=== PATIENT | male | born 1990 | race Caucasian/White ===

== ENCOUNTER 2024-01-23 15:26 | Emergency (ER) | payer OTHER, SELFPAY ==
[2024-01-23 15:30] VITALS: BP 102/76; PULSE 111; TEMP 36.8; O2SAT 100; BMI 21.4
--- NOTE | 2024-01-23 15:58 | ED.GENADUL1 ---
HPI HPI - General Adult General Chief complaint: Nausea/Vomiting/Diarrhea Stated complaint: Nausea/Vomiting Time Seen by Provider: 01/23/24 15:52 Source: patient Mode of arrival: walk-in Limitations: no limitations History of Present Illness HPI narrative: Patient is a 33-year-old male with a history of anxiety presents to the emergency department for 1 day history of vomiting and diarrhea. He reports left central abdominal pain associated with this. He has had no blood in his stool. No objective fevers or upper respiratory symptoms. He states he was drinking and smoking heavily last night. He states he drinks so he can fall asleep because he has bad anxiety and the alcohol helps him fall asleep. He has had no urinary symptoms. No recent travel or antibiotics. Related Data Previous Rx's ?Medication ?Instructions ?Recorded dicyclomine 20 mg tablet 20 mg PO QID PRN abdominal pain 01/23/24 #12 tabs lorazepam 0.5 mg tablet (Ativan) 0.5 mg PO Q8H PRN anxiety #2 tabs 01/23/24 ondansetron 4 mg disintegrating 4 mg PO Q6H PRN nausea and 01/23/24 tablet vomiting #12 tabs Allergies Allergy/AdvReac Type Severity Reaction Status Date / Time No Known Drug Allergies Allergy Verified 01/23/24 15:30 Opioid HPI Opioid Management Most Recent Opioid Data: No Data to Display Review of Systems ROS Constitutional Reports: chills; Denies: fever Ears, nose, mouth, and throat Denies: throat pain or nasal congestion Cardiovascular Denies: chest pain Respiratory Denies: shortness of breath or cough Gastrointestinal Reports: abdominal pain, nausea, vomiting and diarrhea Musculoskeletal Denies: back pain Integumentary/Breast Denies: rash Neurological Denies: headache Psychiatric Reports: anxiety Hematologic/Lymphatic Denies: easy bruising or easy bleeding Exam Narrative Exam Narrative: Gen.: Awake, alert, in no distress Head: Normocephalic, atraumatic ENT: Moist mucous membranes Respiratory: No respiratory distress Gastrointestinal: Abdomen is soft, nondistended and nontender to palpation Extremities: Moves extremities equally Psych: Anxious, difficult to redirect Neuro: No focal neuro deficit Skin: Warm, dry, intact Constitutional Vital Signs, click to edit/add: Last Vital Signs Temp 98.2 F 01/23/24 15:30 Pulse 96 H 01/23/24 17:16 Resp 20 01/23/24 17:16 BP 126/76 01/23/24 17:16 Pulse Ox 100 01/23/24 17:16 O2 Del Method Room Air 01/23/24 15:30 Course Vital Signs Vital signs: Vital Signs Temperature 98.2 F 01/23/24 15:30 Pulse Rate 111 H 01/23/24 15:30 Respiratory Rate 20 01/23/24 15:30 Blood Pressure 102/76 01/23/24 15:30 Pulse Oximetry 100 01/23/24 15:30 Oxygen Delivery Method Room Air 01/23/24 15:30 Temperature 98.2 F 01/23/24 15:30 Pulse Rate 96 H 01/23/24 17:16 Respiratory Rate 20 01/23/24 17:16 Blood Pressure 126/76 01/23/24 17:16 Pulse Oximetry 100 01/23/24 17:16 Oxygen Delivery Method Room Air 01/23/24 15:30 Medical Decision Making MDM Narrative Medical decision making narrative: Patient found to have elevated white blood cell count and elevated lactic acid. He was treated with IV fluids, Zofran, Levsin in the ER. He was significantly anxious and is focused on his sleep patterns being the reason that he continues drinking alcohol. He was offered Ativan and at first was reluctant but then became agreeable to 0.5 mg IV Ativan with significant improvement. He is resting comfortably on reevaluation with no emesis in the ER. CT scan shows mild colitis and the patient is positive for norovirus. We will defer antibiotics at this time. Follow-up with PCP and return to the ER if symptoms change or worsen Medical Records Medical records reviewed: Yes I reviewed the patient's medical records Lab Data Lab results reviewed: Yes I reviewed the patient's lab results Labs: Lab Results 01/23/24 01/23/24 Range/Units 15:50 16:10 WBC 22.8 H (4.0-11.0) 10^3/uL RBC 5.43 (4.70-6.10) 10^6/uL Hgb 16.7 (14.0-18.0) g/dL Hct 49.0 (42.0-54.0) % MCV 90.2 (80.0-94.0) fL MCH 30.8 (25.9-34.0) pg MCHC 34.1 (29.9-35.2) g/dL RDW 12.0 (11.0-15.0) % Plt Count 283 (150-450) 10^3/uL MPV 8.7 L (9.5-13.5) fL Seg Neuts % (Manual) 93.0 Lymphocytes % (Manual) 1.0 L (20.5-60.0) % Monocytes % (Manual) 6.0 (1.7-12.0) % Eosinophils % (Manual) 0.0 L (0.9-7.0) % Basophils % (Manual) 0.0 L (0.2-2.0) % Neutrophils # (Manual) 21.20 H (1.4-6.5) 10^3/uL Lymphocytes # (Manual) 0.22 L (1.20-3.80) 10^3/uL Monocytes # (Manual) 1.36 H (0.30-0.80) 10^3/uL Eosinophils # (Manual) 0.00 (0.00-0.70) 10^3/uL Basophils # (Manual) 0.00 (0.00-0.10) 10^3/uL Sodium 140 (136-145) mmol/L Potassium 4.2 (3.5-5.1) mmol/L Chloride 102 (98-107) mmol/L Carbon Dioxide 20.2 L (21.0-32.0) mmol/L Anion Gap 22.0 BUN 12.0 (7.0-18.0) mg/dL Creatinine 1.07 (0.70-1.30) mg/dL Est GFR ( Amer) >60 (>=60) Est GFR (Non-Af Amer) >60 (>=60) BUN/Creatinine Ratio 11.2 Glucose 139 H (74-106) mg/dL Lactate 4.7 H* (0.4-2.0) mmol/L Calcium 10.2 H (8.5-10.1) mg/dL Total Bilirubin 0.9 (0.2-1.0) mg/dL AST 18 (15-37) U/L ALT 25 (16-63) U/L Alkaline Phosphatase 121 H (46-116) U/L Total Protein 8.8 H (6.4-8.2) g/dL Albumin 4.8 (3.4-5.0) g/dL Globulin 4.0 g/dL Albumin/Globulin Ratio 1.2 Lipase 22.0 (16.0-77.0) U/L Stl C. cayetanensis PCR Not detected (NOT DETECTE) Stool Rotavirus (PCR) Not detected (NOT DETECTE) Stool Adenovirus (PCR) Not detected (NOT DETECTE) Stool Astrovirus (PCR) Not detected (NOT DETECTE) Stool Campylobacter PCR Not detected (NOT DETECTE) Stool Cryptosporidium PCR Not detected (NOT DETECTE) St Sh/Enteroin Ecoli PCR Not detected (NOT DETECTE) Stl Enterotoxigenic E PCR Not detected (NOT DETECTE) Stool EPEC (PCR) Not detected (NOT DETECTE) Stl E. histolytica PCR Not detected (NOT DETECTE) Stool Giardia Lamblia PCR Not detected (NOT DETECTE) Stl P. shigelloides PCR Not detected (NOT DETECTE) Stool Salmonella PCR Not detected (NOT DETECTE) Stool Sapovirus (PCR) Not detected (NOT DETECTE) Stl Shiga-like Tx 1 PCR Not detected (NOT DETECTE) St Y.enterocolitica PCR Not detected (NOT DETECTE) Stl Vibrio cholerae PCR Not detected (NOT DETECTE) Stl Enteroaggr Ecoli PCR Not detected (NOT DETECTE) Stl Norovirus GI/GII PCR Detected A (NOT DETECTE) Specimen Source Stool C. difficile Toxin A&B Not detected (NOT DETECTE) Vibrio Culture Not detected (NOT DETECTE) Imaging Data CT scan - abdomen: Attestation: I have reviewed the pertinent imaging results. Radiologist's impression: ITS Impressions Abdomen/Pelvis CT 01/23/24 16:13 IMPRESSION: 1 mild thickening of the colon wall diffuse question mild colitis. No definite pericolonic fluid or inflammation. 2. Normal-appearing appendix right lower quadrant. Normal-appearing small bowel. No ascites or free fluid. 3. Mildly prominent bladder wall with questionable faint gas along the dome. Nonspecific but correlate for cystitis. Electronically authenticated by: ISIDRO MULLER Date: 01/23/2024 17:32 Discharge Plan Discharge Stand Alone Forms: Portal Instructions Chief Complaint: Nausea/Vomiting/Diarrhea Clinical Impression: Nausea vomiting and diarrhea, Norovirus Patient Disposition: Home, Self-Care Time of Disposition Decision: 18:07 Condition: Good Prescriptions / Home Meds: New dicyclomine 20 mg tablet 20 mg PO QID PRN (Reason: abdominal pain) Qty: 12 0RF ondansetron 4 mg tablet,disintegrating 4 mg PO Q6H PRN (Reason: nausea and vomiting) Qty: 12 0RF lorazepam [Ativan] 0.5 mg tablet 0.5 mg PO Q8H PRN (Reason: anxiety) Qty: 2 0RF Print Language: Icelandic Instructions: Gastroenteritis (ED), Acute Diarrhea (ED) Referrals: Physician,Non-Staff, MD [Primary Care Provider] - 1 week
[2024-01-23 16:03] LABS: Hemoglobin 16.7 g/dL (14.0-18.0); Mean Corpuscular HGB Conc 34.1 g/dL (29.9-35.2); Mean Corpuscular Hemoglobin 30.8 pg (25.9-34.0); Mean Corpuscular Volume 90.2 fL (80.0-94.0); Mean Platelet Volume 8.7 fL (9.5-13.5); Platelet Count 283 10^3/uL (150-450); Red Blood Count 5.43 10^6/uL (4.70-6.10); White Blood Count 22.8 10^3/uL (4.0-11.0)
[2024-01-23] MEDS: 0.9 % SODIUM CHLORIDE 1,000 ML 999 ML IV (16:03)
[2024-01-23] MEDS: ONDANSETRON PF 4 MG/2 ML VIAL IV (16:04)
[2024-01-23] MEDS: HYOSCYAMINE SULFATE 0.125 MG TAB.SUBL SL (16:05)
[2024-01-23 16:12] VITALS: BP 174/98; PULSE 81; O2SAT 95
--- NOTE | 2024-01-23 16:13 | CT_ITS ---
[address] [address] Patient Name: RICKY ROYAL MRN: [id number] date: 1990 Sex: M Assigned Patient Location: ED.MAIN Current Patient Location: ER Accession/Order Number: [id number] Exam Date: 01/23/2024 16:55 Report Date: 01/23/2024 17:32 At the request of: ALVIN MELENDEZ Procedure: CT abdomen pelvis w con EXAM: CT abdomen pelvis w con HISTORY: vomiting and diarrhea COMPARISON: None. TECHNIQUE: CT abdomen pelvis with IV contrast. 90 mL Omnipaque 350. Axial scans with reformatted coronal and sagittal images. Individualized radiation dose reduction used for this exam. FINDINGS: Lower chest: Lung bases clear, no pleural effusion. No acute process lower chest. ABDOMEN: Homogeneous liver without focal lesion. Normal appearing fluid-filled gallbladder, no biliary dilatation. Adrenal glands, pancreas, spleen unremarkable. No ascites or free fluid. No adenopathy. Normal enhancement aorta and branches. Normal symmetric enhancement of the kidneys without mass or hydronephrosis. Normal ureters. Normal-appearing stomach and small bowel. Colonic wall thickening may reflect mild colitis, no pericolonic fluid or inflammation. Normal-appearing terminal ileum and appendix right lower quadrant. No diverticular disease seen. Pelvis No mass or adenopathy or free fluid. Fluid-filled bladder with questionable faint lucency/gas along the dome. Could also be result of recent catheterization. Bladder wall mildly prominent. Nonspecific can be seen with cystitis. Normal pelvic ureters. No bladder calcification. No inguinal mass or adenopathy or hernia. MUSCULOSKELETAL: No suspicious bone lesion. CT/CT abdomen pelvis w con IMPRESSION: 1 mild thickening of the colon wall diffuse question mild colitis. No definite pericolonic fluid or inflammation. 2. Normal-appearing appendix right lower quadrant. Normal-appearing small bowel. No ascites or free fluid. 3. Mildly prominent bladder wall with questionable faint gas along the dome. Nonspecific but correlate for cystitis. Electronically authenticated by: ISIDRO MULLER Date: 01/23/2024 17:32
[2024-01-23 16:20] LABS: Adenovirus F 40/41 NOT DETECTED (NOT DETECTE); Astrovirus NOT DETECTED (NOT DETECTE); Campylobacter NOT DETECTED (NOT DETECTE); Cryptosporidium NOT DETECTED (NOT DETECTE); Cyclospora cayetanensis NOT DETECTED (NOT DETECTE); Entamoeba histolytica NOT DETECTED (NOT DETECTE); Enteroaggregative E.coli NOT DETECTED (NOT DETECTE); Enteropathogenic E.coli NOT DETECTED (NOT DETECTE); Enterotoxigenic E. coli NOT DETECTED (NOT DETECTE); Giardia lamblia NOT DETECTED (NOT DETECTE); Plesiomonas shigelloides NOT DETECTED (NOT DETECTE); Rotavirus A NOT DETECTED (NOT DETECTE); Salmonella NOT DETECTED (NOT DETECTE); Sapovirus NOT DETECTED (NOT DETECTE); Shiga-like toxin-producing E.C NOT DETECTED (NOT DETECTE); Shigella/Enteroinvasive E.coli NOT DETECTED (NOT DETECTE); Vibrio NOT DETECTED (NOT DETECTE); Vibrio cholerae NOT DETECTED (NOT DETECTE); Yersinia enterocolitica NOT DETECTED (NOT DETECTE)
[2024-01-23 16:24] LABS: Alanine Aminotransferase 25 U/L (16-63); Albumin Globulin Ratio 1.2; Albumin Level 4.8 g/dL (3.4-5.0); Alkaline Phosphatase 121 U/L (46-116); Aspartate Amino Transferase 18 U/L (15-37); BUN Creatinine Ratio 11.2; Bilirubin Total 0.9 mg/dL (0.2-1.0); Calcium 10.2 mg/dL (8.5-10.1); Carbon Dioxide 20.2 mmol/L (21.0-32.0); Chloride 102 mmol/L (98-107); Estimated GFR (African America >60 (>=60); Estimated GFR (Non-African Ame >60 (>=60); Glucose 139 mg/dL (74-106); Potassium 4.2 mmol/L (3.5-5.1); Sodium 140 mmol/L (136-145); Total Protein 8.8 g/dL (6.4-8.2)
[2024-01-23 16:28] LABS: Lactate/Lactic Acid 4.7 mmol/L (0.4-2.0)
[2024-01-23 16:46] LABS: Lymphocytes Absolute Manual 0.22 10^3/uL (1.20-3.80); Monocytes Absolute Manual 1.36 10^3/uL (0.30-0.80)
[2024-01-23 17:16] VITALS: BP 126/76; PULSE 96; O2SAT 100
[2024-01-23] MEDS: LORAZEPAM 2 MG/ML VIAL 0.5 MG IV (17:30)
[2024-01-23 17:55] LABS: Norovirus GI/GII DETECTED (NOT DETECTE)
[2024-01-23] MEDS: ONDANSETRON 4 MG RAPDIS TABLET SL (18:20)
[2024-01-23] MEDS: DICYCLOMINE HCL 10 MG CAPSULE 20 MG PO (18:20)
[2024-01-23] MEDS: LORAZEPAM 0.5 MG TABLET PO (18:20)
[2024-01-23 18:21] VITALS: BP 112/74; PULSE 117; O2SAT 100
== END 2024-01-23 18:26 | disposition home or self-care (01) ==
PROVIDERS: Physician Assistant; Emergency Provider Student in an Organized Health Care Education/Training Program
DX: A08.11 Acute gastroenteropathy due to Norwalk agent (principal); F41.9 Anxiety disorder, unspecified; R11.2 Nausea with vomiting, unspecified; R10.9 Unspecified abdominal pain; R19.7 Diarrhea, unspecified; F17.200 Nicotine dependence, unspecified, uncomplicated
CPT/HCPCS: 36415; 74177; 80053; 83605; 83690; 85007; 85027; 87507; 96361; 96374; 96375; 99285; Q9967

== ENCOUNTER 2024-12-07 00:43 | Emergency (ER) | payer OTHER, SELFPAY ==
[2024-12-07 00:48] VITALS: BP 145/98; PULSE 78; TEMP 36.7; O2SAT 100; BMI 23.6
--- OUTSIDE RECORDS SUMMARY | 2024-12-07 00:53 | XMS_ITS | CCD ---
Author Organization [facility] Care Team Providers Care Sail Finisher Hand Name Role Phone Harini Chery Unavailable Unavailable Sprout Unavailable Unavailable Harini Chery Unavailable Unavailable Harini Chery Primary Care Provider Dante Clinton Primary Care Provider DANTE CLINTON Referring Unavailable DANTE CLINTON Primary Care Unavailable DANTE CLINTON Referring Unavailable DANTE CLINTON Primary Care Unavailable REQUEST, DR KOWALSKI LISTED Primary Care Unavaila ble MARKER, DR MONTENEGRO Admitting Unavailable MARKER, DR MONTENEGRO Attending Unavailable MARKER, DR MONTENEGRO Consulting Unavailable ANDREA BUCKNER Consulting Unavailable Allergies Allergy Classification Reported Allergen(s) Allergy Type Date of Onset Reaction(s) Facility (1 source) NO KNOWN DRUG ALLERGIES Allergy to substance (disorder) [employer] Work Phone: (4 sources) -No Environmental Allergies; Translations: [-No Environmental Allergies] Allergy to substance (disorder) [employer] Work Phone: (1 source) -No Known Food Allergies Allergy to substance (disorder) [employer] Work Phone: Medications Current Medications Medication Drug Class(es) Dates Sig (Normalized) Sig (Original) doxycycline hyclate 100 mg oral capsule (1 source) Tetracycline-class Drug Start: 10-17-2019 Doxycycline Hyclate 100 MG Oral Capsule 10/17/2019 Provider: Dante Clinton CNP hydrOXYzine pamoate 50 mg oral capsule (7 sources) Antihistamine Start: 10-17-2019 hydrOXYzine Pamoate 50 MG Oral Capsule 10/17/2019 Provider: Start: 10-09-2018 End: 10-09-2018 VISTARIL MISC 10/09/2018 - 0 10/09/2018 Provider: Vistaril oral predniSONE 20 mg oral tablet (1 source) Start: 10-17-2019 predniSONE 20 MG Oral Tablet 10/17/2019 Provider: Dante Clinton CNP traZODone hydrochloride 50 mg oral tablet (9 sources) Serotonin Reuptake Inhibitor Start: 05-05-2019 traZODone HCl 50MG Oral Tablet 05/05/2019 Provider: Start: 10-09-2018 End: 10-09-2018 TRAZODONE 50 mg MISC 019 - 10/09/2018 Provider: Completed/Discontinued Medications Medication Drug Class(es) Dates Sig (Normalized) Sig (Original) azithromycin 250 mg oral tablet (2 sources) Macrolide Antimicrobial Start: 05-05-2019 End: 05-10-2019 Azithromycin 250MG Oral Tablet 05/05/2019 - 05/10/2019 Provider: Dante Clinton CNP benzonatate 100 mg oral capsule (2 sources) Non-narcotic Antitussive Start: 05-05-2019 End: 05-08-2019 Tessalon Perles 100MG Oral Capsule 05/05/2019 - 05/08/2019 Provider: Dante Clinton CNP fluticasone propionate 0.05 mg/actuat metered dose nasal spray (2 sources) Corticosteroid Start: 05-05-2019 End: 06-04-2019 Fluticasone Propionate 50MCG/ACT Nasal Suspension 05/05/2019 - 06/04/2019 Provider: Dante Clinton CNP loratadine 10 mg oral tablet (2 sources) Start: 05-05-2019 End: 06-04-2019 GNP Loratadine 10MG Oral Tablet 05/05/2019 - 06/04/2019 Provider: Dante Clinton CNP Problems Active Problems Problem Classification Problem Date Documented Da te Episodic/Chronic Acute bronchitis (1 source) Acute bronchitis Episodic Administrative/social admission (1 source) Other reasons for seeking consultation Onset: 04-06-2018 Episodic Alcohol-related disorders (6 sources) Alcohol abuse; Translations: [Alcohol Abuse] Onset: 05-05-2019 Chronic Anxiety disorders (7 sources) Anxiety state, unspecified; Translations: [Generalized anxiety disorder] Onset: 05-05-2019 Chronic Fracture of upper limb (1 source) Ill-defined closed fractures of upper limb Episodic Mood disorders (7 sources) Depressive disorder, not elsewhere classified; Translations: [Dysthymia] Onset: 05-05-2019 Chronic Other lower respiratory disease (4 sources) Cough; Translations: [Assessment of Cough] Onset: 05-05-2019 Episodic Other screening for suspected conditions (not mental disorders or infectious disease) (1 source) Encounter for screening for diabetes mellitus; Translations: [Diabetes Risk Test Score] Onset: 10-17-2019 Episodic Other upper respiratory infections (1 source) Acute sinusitis; Translations: [Sinusitis Acute] Onset: 10-17-2019 Episodic Substance-related disorders (6 sources) Nicotine dependence; Translations: [Nicotine Dependence] Onset: 05-05-2019 Chronic Unclassified (1 source) Body Mass Index between 19-24, adult Onset: 04-06-2018 Episodic Past or Other Problems Problem Classification Problem Date Documented Date Episodic/Chronic Fever of unknown origin (2 sources) Fever; Translations: [Fever] Onset: 05-05-2019 Episodic Unclassified (3 sources) Fagerstrom Score; Translations: [Fagerstrom Score] Onset: 05-05-2019 Unclassified (3 sources) Questionnaires Phq-9 Total Score; Translations: [Questionnaires Phq-9 Total Score] Onset: 05-05-2019 Unclassified (4 sources) Finding of body mass index; Translations: [Body Mass Index] Onset: 05-05-2019 Results Test Name Value Interpretation Reference Range Facil ity XR HAND RT MIN 3Von 06-25-20 22 XR HAND RT MIN 3V EXAM: XR WRIST RT MIN 3 V, XR HAND RT MIN 3V HISTORY: Pain of right wrist COMPARISON: None. TECHNIQUE: 3 views of the right wrist and 3 views of the right hand were obtained. FINDINGS: No acute fracture or dislocation of the right wrist or right hand is seen. The joint spaces are preserved. IMPRESSION: 1. No acute fracture or dislocation of the right wrist or right hand is seen. If pain persists, repeat radiographs are recommended in 7-10 days. Electronically authenticated by: Jeff BUCKNER Date: 2022-06-25 05:58 Normal [facility] XR CHEST (SINGLE VIEW FRONTA L)on 10-18-2019 XR CHEST (SINGLE VIEW FRONTAL) EXAMINATION: ONE XRAY VIEW OF THE CHEST 10/18/2019 1:12 pm COMPARISON: None. HISTORY: ORDERING SYSTEM PROVIDED HISTORY: Acute bronchitis, unspecified organism FINDINGS: Cardiomediastinal silhouette and pulmonary vasculature are within normal limits. No focal airspace consolidation, pneumothorax, or pleural effusion. No free air beneath the diaphragm. No acute osseous abnormality. IMPRESSION: No acute intrathoracic process. Interpreted by: Amaya Spencer DO Signed by: Amaya Spencer DO 10/18/19 Final result Normal [facility] No acute intrathorac ic process. [facility] [employer] Work Phone: EXAMINATION: ONE XRA Y VIEW OF THE CHEST 10/18/2019 1:12 pm COMPARISON: None. HISTORY: ORDERING SYSTEM PROVIDED HISTORY: Acute bronchitis, unspecified organism FINDINGS: Cardiomediastinal silhouette and pulmonary vasculature are within normal limits. No focal airspace consolidation, pneumothorax, or pleural effusion. No free air beneath the diaphragm. No acute osseous abnormality. [facility] Work Phone: Sandor, [facility] Incoming Radiant Results From Mir Tesen - 10/18/2019 1:18 PM EST EXAMINATION: ONE XRAY VIEW OF THE CHEST 10/18/2019 1:12 pm COMPARISON: None. HISTORY: ORDERING SYSTEM PROVIDED HISTORY: Acute bronchitis, unspecified organism FINDINGS: Cardiomediastinal silhouette and pulmonary vasculature are within normal limits. No focal airspace consolidation, pneumothorax, or pleural effusion. No free air beneath the diaphragm. No acute osseous abnormality. IMPRESSION: No acute intrathoracic process. [facility] Work Phone: Vital Signs Date Time Vital Sign Value Performing Clinician Rome salguero 10-17-2019 17:49-0500 BMI (Body Mass Index) 21 kg/m2 [facility] Work Phone: 10-17-2019 17:49-0500 Body Temperature 98.3 [degF] [facility] Work Phone: 10-17-2019 17:49-0500 Body weight 62.51 kg [facility] Work Phone: 10-17-2019 17:49-0500 BP Diastolic 84 mm[Hg] [facility] Work Phone: 10-17-2019 17:49-0500 BP Systolic 130 mm[Hg] [facility] Work Phone: 10-17-2019 17:49-0500 BSA (Body Surface Area) 1.74 m2 [facility] Work Phone: 10-17-2019 17:49-0500 Height 172.72 cm [facility] Work Phone: 10-17-2019 17:49-0500 Pulse (Heart Rate) 91 /min [facility] Work Phone: 10-17-2019 17:49-0500 Pulse Oximetry 99 % [facility] Work Phone: 10-17-2019 17:49-0500 Respiratory Rate 14 /min [facility] Work Phone: 05-05-2019 15:48-0400 BMI (Body Mass Index) 22 kg/m2 [facility] Work Phone: 05-05-2019 15:48-0400 Body Temperature 98.9 [degF] [facility] Work Phone: 05-05-2019 15:48-0400 Body weight 65.68 kg [facility] Work Phone: 05-05-2019 15:48-0400 BP Diastolic 80 mm[Hg] [facility] Work Phone: 05-05-2019 15:48-0400 BP Systolic 120 mm[Hg] [facility] Work Phone: 05-05-2019 15:48-0400 BSA (Body Surface Area) 1.78 m2 [facility] Work Phone: 05-05-2019 15:48-0400 Height 172.72 cm [facility] Work Phone: 05-05-2019 15:48-0400 Pulse (Heart Rate) 81 /min [facility] Work Phone: 05-05-2019 15:48-0400 Pulse Oximetry 98 % [facility] Work Phone: 05-05-2019 15:48-0400 Respiratory Rate 14 /min [facility] Work Phone: 04-06-2018 16:05-0400 BMI (Body Mass Index) 21.48 kg/m2 [facility] 04-06-2018 16:05-0400 Body Temperature 97.8 [degF] [facility] 04-06-2018 16:05-0400 BP Diastolic 70 mm[Hg] [facility] 04-06-2018 16:05-0400 BP Systolic 100 mm[Hg] [facility] 04-06-2018 16:05-0400 BSA (Body Surface Area) 1.73 m2 [facility] 04-06-2018 16:05-0400 Height 171.45 cm [facility] 04-06-2018 16:05-0400 Pulse (Heart Rate) 72 /min [facility] 04-06-2018 16:05-0400 Pulse Oximetry 100 % [facility] 04-06-2018 16:05-0400 Respiratory Rate 18 /min [facility] 04-06-2018 16:05-0400 Weight 63.14 kg [facility] Encounters Encounter Date Encounter Type Care Provider Facility Start: 06-25-2022 End: 06-25-[address] NONE LISTED REQUEST Facility: Start: 10-18-2019 End: 10-21-2019 Patient encounter procedure DANTE Moreira [facility] Start: 10-18-2019 End: 10-20-2019 Subsequent hospital visit by physician [facility] Radiology Comment on above: Acute bronchitis, un specified organism Start: 10-17-2019 End: 10-17-2019 Established patient Dante Clinton Work Phone: [facility] Work Phone: Start: 05-05-2019 End: 05-05-2019 Established patient Dante Clinton Work Phone: [facility] Work Phone: Start: 05-05-2019 End: 05-05-2019 General Jarod Stokes Work Phone: [facility] Work Phone: Start: 04-06-2018 Initial preventive medicine new pt age 18-39yrs Harini Chery Other [facility] Procedures Date Procedure Procedure Detail Performing Clinician Start: 10-18-2019 Radiologic exam chest single view DANTE CLINTON Start: 10-18-2019 Radiologic exam chest single view Dante Clinton Work Phone: Start: 10-17-2019 Diast bp 80-89 mm hg Dante [email or web address] Work Phone: Start: 10-17-2019 Pt tobacco screen rcvd tlk Dante Natividad Work Phone: Start: 10-17-2019 Pt-focused hlth risk assmt score doc stnd instrm Dante Natividad Work Phone: Start: 10-17-2019 Syst bp ge 130 - 139mm hg [employer] Work Phone: Start: 05-05-2019 Alcohol consumption screening Audit Alcohol Use Disorders Identification Test ___(0-40) Harini Chery Start: 05-05-2019 ANXIETY DISORDER NOS Harini Chery Start: 05-05-2019 DEPRESSION Harini Chery Start: 05-05-2019 Diast bp <80 mm hg [employer] Work Phone: Start: 05-05-2019 Psychotherapy w/patient 30 minutes Jarod Stokes Work Phone: Start: 05-05-2019 Surgical procedure Harini Chery Start: 05-05-2019 Syst bp lt 130 mm hg Dantelynne Clinton Work Phone: Plan of Treatment Date Care Activity Detail Author Start: 07-06-2028 DTaP/Tdap/Td vaccine (2 - Td) DTaP/Tdap/Td vaccine (2 - Td) [employer] Phone: Start: 11-16-2019 XR AP Chest (97856) [facility] Work Phone: Start: 05-19-2019 Medical Established Patient [facility] Work Phone: Start: 05-15-2019 Influenza vaccination Flu vaccine (#1) [employer] Phone: Start: 2004 HIV screen HIV screen [employer] Phone: Start: 1995 Pneumococcal 0-64 years Vaccine (1 of 1 - PPSV23) Pneumococcal 0-64 years Vaccine (1 of 1 - PPSV23) [employer] Phone: Start: 1990 Varicella vaccine (1 of 2 - 2-dose childhood series) Varicella vaccine (1 of 2 - 2-dose childhood series) [employer] Phone: Immunizations Immunization Date Immunization Notes Care Provider Fa cility 07-06-2018 tetanus toxoid, redu justo diphtheria toxoid, and acellular pertussis vaccine, adsorbed Dante Clinton [employer] Phone: Payers Date Payer Category Payer Unknown [id number] 2017 Unknown [id number] 2014 Unknown [id number] 2014 Unknown BCBS [place] P PO xxxxxxxxxxxx 2014-Present [address] [place] [address] xxxxxxxxxxxx [id number] 1989 Unknown [id number] 1989 Unknown [id number] 1989 Unknown [id number] 1959 Unknown [id number] Social History Date Type Detail [facility] Start: Current every day smoker [employer] Assertion Finding of alcoh ol intake (finding) [employer] Work Phone: Assertion Emotional stress (finding) [employer] Work Phone: Assertion Single person (finding) [facility] Work Phone: Assertion Tobacco user (finding) [facility] Work Phone: Tobacco smoking status Unknown if ever smoked [employer] Work Phone: Assertion [employer] Work Phone: Assertion Social drinker (finding) [employer] Work Phone: Assertion Gender identity finding (finding) [employer] Work Phone: Assertion Finding of sexua l orientation (finding) [employer] Work Phone: Assertion Sexually active (finding) [employer] Work Phone: History of tobacco use Cigarette Smoker [employer] Phone: Start: 03-22-2018 Cigarettes smoked current (pack per day) - Reported [employer] Phone: Sex Assigned At Not on file [employer] Phone: NEGATED: Highlighted row Assertion Exposure to pollution (event) [facility] Work Phone: NEGATED: Highlighted row Assertion Illicit drug use (finding) [facility] Work Phone: NEGATED: Highlighted row Assertion Misuse of prescription only drugs (finding) [facility] Work Phone: NEGATED: Highlighted row Assertion Finding relating to drug misuse behavior (finding) [facility] Work Phone: Mental Status Date Assessment Result Facility Cognitive function Cognitive fun ctioning was normal Cognitive function finding (finding) [facility] Work Phone: Assessments Findings Encounter Date Alcohol abuse [facility] Substance Abuse w [facility] Jarod Stokes [facility] 05/05/2019 Dysthymic disorder [facility] Substance Abuse w [facility] Jarod Stokes [facility] 05/05/2019 Generalized anxiety disorder BH Substanc e Abuse with Jarod Stokes [facility] 05/05/2019 Nicotine dependence [facility] Substance Abuse w [facility] Jarod Stokes [facility] 05/05/2019 Assessment of cough Medical Established Patient with Dante Natividad [facility] 05/05/2019 AUDIT alcohol use disorders identification test was four Medical Established Patient with Dante Natividad [facility] 05/05/2019 Body mass index [Body mass i ndex (BMI) 22.0-22.9, adult] Medical Established Patient with Dante Natividad [facility] 05/05/2019 Fagerstrom Score was 0 Medical Establish ed Patient with Dante Natividad [facility] 05/05/2019 PHQ-9: total score was 18 Medical Establ ished Patient with Dante Natividad [facility] 05/05/2019 Findings Encounter Date Acute sinusitis Medical Established Patient with Dante Natividad [facility] 10/17/2019 Assessment of cough Medical Established Patient with Dante Natividad [facility] 10/17/2019 Body mass index [Body mass i ndex (BMI) 21.0-21.9 adult] Medical Established Patient with Dante Natividad [facility] 10/17/2019 Diabetes Risk Test Score was one score 10/17/2019 Medical Established Patient with Dante Natividad [facility] 10/17/2019 Alcohol abuse [facility] Substance Abuse w [facility] Jarod Stokes [facility] 05/05/2019 Dysthymic disorder Substance Abuse w [facility] Jarod Stokes [facility] 05/05/2019 Generalized anxiety disorder Substanc e Abuse with Jarod Stokes [facility] 05/05/2019 Nicotine dependence Substance Abuse w [facility] Jarod Stokes [facility] 05/05/2019 Assessment of cough Medical Established Patient with Dante Clinton [facility] 05/05/2019 AUDIT alcohol use disorders identification test was four Medical Established Patient with Dante Clinton [facility] 05/05/2019 Body mass index [Body mass i ndex (BMI) 22.0-22.9, adult] Medical Established Patient with Dante Clinton DISABILITY MANA[facility] 05/05/2019 Fagerstrom Score was 0 Medical Establish ed Patient with Dante Clinton [facility] 05/05/2019 PHQ-9: total score was 18 Medical Establ ished Patient with Dante Clinton [facility] 05/05/2019 Diagnosis Acute bronchitis, unspecified organism Instructions Instructions not supported for this document type No Instructions Recorded Instructions not supported for this document type No Instructions Recorded Instructions not supported for this document type No Instructions Recorded History of Present Illness History of Present Illness not supported for this document type No History of Present Illness Recorded History of Present Illness not supported for this document type No History of Present Illness Recorded History of Present Illness not supported for this document type No History of Present Illness Recorded Family History No Family History Records Found Description Last Updated No significant medical history in nuclea r family 05/05/2019 Review of System Review of Systems not supported for this document type No Review of Systems Recorded Review of Systems not supported for this document type No Review of Systems Recorded Review of Systems not supported for this document type No Review of Systems Recorded Physical Exam Physical Exam not supported for this document type No Physical Exam Recorded Physical Exam not supported for this document type No Physical Exam Recorded Physical Exam not supported for this document type No Physical Exam Recorded Advance Directives No Advanced Directives Records FoundDocuments on File Type Date Recorded Patient Loan Processing Supervisor Expl anation Advance Directives and Living Will Power of Housing Quality Standard Inspector Reason for Referral No Reason for Referral Recorded Summary Purpose Additional Source Comments Evaluations & Outcomes (unre cognized section and content) Includes: Evaluations & Outcomes for active GoalsNo Outcomes Recorded Includes: Evaluations & Outcomes for active GoalsNo Outcomes Recorded Includes: Evaluations & Outcomes for active GoalsNo Outcomes Recorded (unrecognized sect ion and content) No Status Records FoundNo Status Records Found INFORMATION SOURCE (unrecogn ized section and content) DATE CREATED AUTHOR 10/21/2019 [facility] DATE CREATED AUTHOR AUTHOR'S CARY CONLEY 06/25/2022 [facility] FOR RECORDS PERTAINING TO PATIENTS WHO ARE OR HAVE BEEN ENROLLED IN A CHEMICAL DEPENDENCY/SUBSTANCEABUSE PROGRAM, SOME INFORMATION MAY BE OMITTED. This clinical summary was aggregated from multiple sources. Caution should be exercised in using it in the provision of clinical care. This summary normalizes information from multiple sources, and as a consequence, information in this document may materially change the coding, format and clinical context of patient data. In addition, data may be omitted in some cases. CLINICAL DECISIONS SHOULD BE BASED ON THE PRIMARY CLINICAL RECORDS. [facility]. provides no warranty or guarantee of the accuracy or completeness of information in this document.
--- NOTE | 2024-12-07 01:04 | ED.DENTAL1 ---
HPI - Dental/Oral General Chief complaint: Dental/Oral Stated complaint: JAW PAIN Time Seen by Provider: 12/07/24 00:48 Source: patient Mode of arrival: walk-in Limitations: no limitations History of Present Illness HPI Narrative: This 34-year-old male presents for evaluation of left-sided jaw pain and adjacent facial/jaw swelling. The patient states yesterday he started having a toothache but he thought maybe he had bit down wrong or something but he tried to go to bed tonight and was having throbbing in his left lower jawline and noticed some adjacent facial swelling. He has not seen a dentist in many years. He has a hole in tooth #21. Adjacent to this he has gingival erythema and edema with no notable abscess and some facial swelling. He denies any chest pain or shortness of breath. He has not had a fever. He took ibuprofen with mild relief of his symptoms approximately 5 hours prior to arrival. Related Data Previous Rx's ?Medication ?Instructions ?Recorded dicyclomine 20 mg tablet 20 mg PO QID PRN abdominal pain 01/23/24 #12 tabs lorazepam 0.5 mg tablet (Ativan) 0.5 mg PO Q8H PRN anxiety #2 tabs 01/23/24 ondansetron 4 mg disintegrating 4 mg PO Q6H PRN nausea and 01/23/24 tablet vomiting #12 tabs Allergies Allergy/AdvReac Type Severity Reaction Status Date / Time No Known Drug Allergies Allergy Verified 12/07/24 00:52 Review of Systems ROS Status of ROS 10 or more systems reviewed and unremarkable except as noted in history and below PFSH PFS Social History Little interest or pleasure in doing things: not at all Feeling down, depressed, or hopeless: not at all Exam Narrative Exam Narrative: Vital signs and Nursing Notes reviewed: Patient is afebrile with a normal pulse, blood pressure is elevated 145/98, he is not hypoxic with pulse ox of 100% on room air General: Awake, alert, oriented, no acute distress, lying comfortably on the stretcher HEENT: Normocephalic atraumatic, mucous membranes are moist and pink, eyes are clear, normal conjunctiva, vision is grossly intact, posterior pharynx is normal in appearance. There is a large cavity at the posterior aspect of tooth #21. Adjacent to this there is gingival erythema and edema. I do not appreciate any periapical abscess but there is moderate facial swelling in the left jaw adjacent to this tooth. There is no trismus or drooling. There is no sign of necrotizing gingivitis. Speech is clear, there is no pooling of secretions. Neck: Supple, no meningeal signs, mild left anterior cervical lymphadenopathy Chest: Lungs are clear to auscultation with good air entry, there is no wheezing rhonchi or rales appreciated no accessory muscle use, patient is speaking in complete sentences-no chest wall tenderness to palpation CVS: Regular rate and rhythm S1-S2, no murmurs rubs or gallops, pulses are brisk and equal bilaterally Skin: Normal in appearance without rash,pallor, petechiae or purpura Neuro: No focal deficits Constitutional Vital Signs, click to edit/add: Last Vital Signs Temp 98.1 F 12/07/24 00:48 Pulse 78 12/07/24 00:48 Resp 18 12/07/24 00:48 BP 145/98 H 12/07/24 00:48 Pulse Ox 100 12/07/24 00:48 O2 Del Method Room Air 12/07/24 00:48 Course Vital Signs Vital signs: Vital Signs Temperature 98.1 F 12/07/24 00:48 Pulse Rate 78 12/07/24 00:48 Respiratory Rate 18 12/07/24 00:48 Blood Pressure 145/98 H 12/07/24 00:48 Pulse Oximetry 100 12/07/24 00:48 Oxygen Delivery Method Room Air 12/07/24 00:48 Temperature 98.1 F 12/07/24 00:48 Pulse Rate 78 12/07/24 00:48 Respiratory Rate 18 12/07/24 00:48 Blood Pressure 145/98 H 12/07/24 00:48 Pulse Oximetry 100 12/07/24 00:48 Oxygen Delivery Method Room Air 12/07/24 00:48 MDM - Dental/Oral MDM Narrative Medical decision making narrative: This 34-year-old male presents for evaluation of left lower dental pain and adjacent swelling of his jaw. He started having dental pain yesterday. He has a large cavity in tooth #21 with adjacent gingival swelling and erythema and tenderness with mild swelling in the left jaw. He does not have any periapical abscess or abscess amenable to incision and drainage. He is not having any fever. His vital signs are stable with mild elevation in his blood pressure. In light of the swelling adjacent to tooth #21 I did not feel comfortable doing a dental block and this was discussed with him. He was medicated with Tylenol and dental analgesia. He was given 1 g of oral amoxicillin in the emergency department. I offered him [place] or Percocet for stronger relief of his pain but he states he is recovering alcoholic and does not want to have any drugs stronger than Tylenol or Motrin. He had taken ibuprofen 5 hours prior to arrival. He will be discharged home with a prescription for the amoxicillin to use after being given a dose in the emergency department and a dose for morning. I encouraged him to contact a local dentist as soon as possible for definitive care and return to the emergency department for worsening symptoms or any concerns. Discharge Plan Discharge Chief Complaint: Dental/Oral Clinical Impression: Toothache, Dental caries, Dental abscess Patient Disposition: Home, Self-Care Time of Disposition Decision: 01:02 Condition: Good Prescriptions / Home Meds: No Action dicyclomine 20 mg tablet 20 mg PO QID PRN (Reason: abdominal pain) Qty: 12 0RF ondansetron 4 mg tablet,disintegrating 4 mg PO Q6H PRN (Reason: nausea and vomiting) Qty: 12 0RF lorazepam [Ativan] 0.5 mg tablet 0.5 mg PO Q8H PRN (Reason: anxiety) Qty: 2 0RF Print Language: [place] Instructions: Toothache (ED) Referrals: Physician,Non-Staff, MD [Primary Care Provider] - 1 week
[2024-12-07] MEDS: ACETAMINOPHEN 325 MG TABLET 650 MG PO (01:26)
[2024-12-07] MEDS: BENZOCAINE 30 ML, lidocaine HCL 15 ML MM (01:26)
[2024-12-07] MEDS: AMOXICILLIN 500 MG CAPSULE PO (01:26)
[2024-12-07] MEDS: AMOXICILLIN 500 MG CAPSULE 1000 MG PO (01:26)
== END 2024-12-07 01:40 | disposition home or self-care (01) ==
PROVIDERS: Emergency Provider Emergency Medicine
DX: K04.7 Periapical abscess without sinus (principal); K08.89 Other specified disorders of teeth and supporting structures; K02.9 Dental caries, unspecified; F10.21 Alcohol dependence, in remission
CPT/HCPCS: 99284

== ENCOUNTER 2024-12-08 14:14 | Emergency (ER) | payer OTHER, SELFPAY ==
[2024-12-08 14:28] VITALS: BP 126/84; PULSE 113; TEMP 36.9; O2SAT 99; BMI 23.6
--- NOTE | 2024-12-08 14:41 | ED.DENTAL1 ---
HPI - Dental/Oral General Chief complaint: Dental/Oral Stated complaint: ABSCESS IN MOUTH Time Seen by Provider: 12/08/24 14:29 Source: patient Mode of arrival: walk-in Limitations: no limitations History of Present Illness HPI Narrative: Patient is a 34-year-old male who presents to the emergency department for evaluation of pain in tooth #21 as well as worsening facial swelling, facial pain and redness extending into the neck. Patient was seen in this emergency department approximately 36 hours ago for swelling of the face and dental pain and was started on amoxicillin. He was evaluated about 24 hours ago by a dentist who placed him on Pen-VK instead. He has had 5 doses since yesterday. He has not had any fevers or vomiting but does have worsening swelling extending into the neck today. He is able to tolerate secretions and drink. Related Data Home Medications ?Medication ?Instructions ?Recorded ?Confirmed amoxicillin 500 mg capsule 500 mg PO TID 12/08/24 12/08/24 penicillin V potassium 500 mg 1,000 mg PO Q6H 12/08/24 12/08/24 tablet Previous Rx's ?Medication ?Instructions ?Recorded dicyclomine 20 mg tablet 20 mg PO QID PRN abdominal pain 01/23/24 #12 tabs lorazepam 0.5 mg tablet (Ativan) 0.5 mg PO Q8H PRN anxiety #2 tabs 01/23/24 ondansetron 4 mg disintegrating 4 mg PO Q6H PRN nausea and 01/23/24 tablet vomiting #12 tabs clindamycin HCl 150 mg capsule 300 mg (2 x 150 mg) PO Q6H 10 days 12/08/24 #80 caps ketorolac 10 mg tablet 10 mg PO TID PRN pain #10 tabs 12/08/24 ondansetron 4 mg disintegrating 4 mg PO Q6H PRN nausea and 12/08/24 tablet vomiting #12 tabs Allergies Allergy/AdvReac Type Severity Reaction Status Date / Time No Known Drug Allergies Allergy Verified 12/08/24 14:27 Review of Systems ROS Constitutional Denies: fever or chills Ears, nose, mouth, and throat Reports: mouth pain and dry mouth; Denies: throat pain or nasal congestion Respiratory Denies: shortness of breath or cough Gastrointestinal Denies: vomiting Integumentary/Breast Denies: rash Neurological Reports: headache; Denies: numbness in extremities or weakness in extremities Hematologic/Lymphatic Denies: easy bruising or easy bleeding [facility] Social History Little interest or pleasure in doing things: not at all Feeling down, depressed, or hopeless: not at all Exam Narrative Exam Narrative: Gen.: Awake, alert, in no distress Head: Normocephalic, atraumatic ENT: Moist mucous membranes, tooth #21 with root exposure. Patient with trismus but no drooling. He tolerates his secretions well. No hoarse or muffled voice. No redness or swelling under the tongue. Left mandible is edematous and tender. Red streaking noted over the left side of the face into the left side of the neck. No induration or fluctuance of the neck Respiratory: No respiratory distress Extremities: Moves extremities equally Psych: Normal mood and affect Neuro: No focal neuro deficit Skin: Warm, dry, intact Constitutional Vital Signs, click to edit/add: Last Vital Signs Temp 98.7 F 12/08/24 17:05 Pulse 86 12/08/24 17:05 Resp 16 12/08/24 17:05 BP 124/78 12/08/24 17:05 Pulse Ox 100 12/08/24 17:05 O2 Del Method Room Air 12/08/24 17:05 Course Vital Signs Vital signs: Vital Signs Temperature 98.4 F 12/08/24 14:28 Pulse Rate 113 H 12/08/24 14:28 Respiratory Rate 20 12/08/24 14:28 Blood Pressure 126/84 12/08/24 14:28 Pulse Oximetry 99 12/08/24 14:28 Oxygen Delivery Method Room Air 12/08/24 14:28 Temperature 98.7 F 12/08/24 17:05 Pulse Rate 86 12/08/24 17:05 Respiratory Rate 16 12/08/24 17:05 Blood Pressure 124/78 12/08/24 17:05 Pulse Oximetry 100 12/08/24 17:05 Oxygen Delivery Method Room Air 12/08/24 17:05 MDM - Dental/Oral MDM Narrative Medical decision making narrative: Patient was treated with IV Zosyn, fluids, Toradol. He has no evidence of airway compromise with uvula midline. Speech is clear. No difficulty handling secretions. CT shows the patient has a small 1.2 cm dental abscess. He was instructed to stop the penicillin and will be started on clindamycin. Follow-up with dentist and return to the ER if symptoms change or worsen. SHARED APC VISIT, PHYSICIAN ATTESTATION: [id number] I performed a substantive part of the MDM during the patient?s E/M visit. I personally evaluated and examined the patient. I personally made or approved the documented management plan and acknowledge its risk of complications. Medical Records Attestation: I reviewed the patient's medical records. Lab Data Attestation: I reviewed the patient's lab results. Labs: Lab Results 12/08/24 Range/Units 14:50 WBC 13.8 H (4.0-11.0) 10^3/uL RBC 5.43 (4.70-6.10) 10^6/uL Hgb 17.0 (14.0-18.0) g/dL Hct 49.0 (42.0-54.0) % MCV 90.2 (80.0-94.0) fL MCH 31.3 (25.9-34.0) pg MCHC 34.7 (29.9-35.2) g/dL RDW 12.3 (11.0-15.0) % Plt Count 215 (150-450) 10^3/uL MPV 9.1 L (9.5-13.5) fL Neut % (Auto) 82.2 H (43.0-75.0) % Lymph % (Auto) 8.4 L (20.5-60.0) % Isabella % (Auto) 8.6 (1.7-12.0) % Eos % (Auto) 0.1 L (0.9-7.0) % Baso % (Auto) 0.3 (0.2-2.0) % Neut # (Auto) 11.3 H (1.4-6.5) 10^3/uL Lymph # (Auto) 1.2 (1.2-3.8) 10^3/uL Isabella # (Auto) 1.2 H (0.3-0.8) 10^3/uL Eos # (Auto) 0.0 (0.0-0.7) 10^3/uL Baso # (Auto) 0.0 (0.0-0.1) 10^3/uL Abs Immat Gran (auto) 0.05 H (0.00-0.03) 10^3/uL Imm/Tot Granulo (auto) 0.4 (0.0-0.5) % ESR 22 H (<=15) mm/hr Sodium 138 (136-145) mmol/L Potassium 3.7 (3.5-5.1) mmol/L Chloride 99 (98-107) mmol/L Carbon Dioxide 27.2 (21.0-32.0) mmol/L Anion Gap 15.5 BUN 16.0 (7.0-18.0) mg/dL Creatinine 1.33 H (0.70-1.30) mg/dL Est GFR ( Amer) >60 (>=60 mL/min/1.73m^2) Est GFR (Non-Af Amer) >60 (>=60 mL/min/1.73m^2) BUN/Creatinine Ratio 12.0 Glucose 99 (74-106) mg/dL Lactate 1.0 (0.4-2.0) mmol/L Calcium 9.7 (8.5-10.1) mg/dL Total Bilirubin 1.1 H (0.2-1.0) mg/dL AST 13 L (15-37) U/L ALT 16 (16-63) U/L Alkaline Phosphatase 86 (46-116) U/L C-Reactive Protein 6.23 H (<=0.50) mg/dL Total Protein 8.8 H (6.4-8.2) g/dL Albumin 4.6 (3.4-5.0) g/dL Globulin 4.2 g/dL Albumin/Globulin Ratio 1.[address] neck: Attestation: I have reviewed the pertinent imaging results. Discharge Plan Discharge Chief Complaint: Dental/Oral Clinical Impression: Dental abscess, Cellulitis of face Patient Disposition: Home, Self-Care Time of Disposition Decision: 18:28 Condition: Good Prescriptions / Home Meds: New clindamycin HCl 150 mg capsule 300 mg PO Q6H 10 Days Qty: 80 0RF ketorolac 10 mg tablet 10 mg PO TID PRN (Reason: pain) Qty: 10 0RF ondansetron 4 mg tablet,disintegrating 4 mg PO Q6H PRN (Reason: nausea and vomiting) Qty: 12 0RF No Action dicyclomine 20 mg tablet 20 mg PO QID PRN (Reason: abdominal pain) Qty: 12 0RF ondansetron 4 mg tablet,disintegrating 4 mg PO Q6H PRN (Reason: nausea and vomiting) Qty: 12 0RF lorazepam [Ativan] 0.5 mg tablet 0.5 mg PO Q8H PRN (Reason: anxiety) Qty: 2 0RF amoxicillin 500 mg capsule 500 mg PO TID penicillin V potassium 500 mg tablet 1,000 mg PO Q6H Print Language: Citizen [place] Instructions: Dental Abscess (ED) Additional Instructions: Please follow up with your dentist Referrals: Physician,Non-Staff, MD [Primary Care Provider] - 1 week
[2024-12-08 15:08] LABS: Basophils Percent Auto 0.3 % (0.2-2.0); Eosinophils Percent Auto 0.1 % (0.9-7.0); Immature Granulocytes Abs Auto 0.05 10^3/uL (0.00-0.03); Immature Granulocytes Pct Auto 0.4 % (0.0-0.5); Lymphocytes Absolute Auto 1.2 10^3/uL (1.2-3.8); Lymphocytes Percent Auto 8.4 % (20.5-60.0); Mean Corpuscular HGB Conc 34.7 g/dL (29.9-35.2); Mean Corpuscular Hemoglobin 31.3 pg (25.9-34.0); Mean Corpuscular Volume 90.2 fL (80.0-94.0); Mean Platelet Volume 9.1 fL (9.5-13.5); Monocytes Absolute Auto 1.2 10^3/uL (0.3-0.8); Monocytes Percent Auto 8.6 % (1.7-12.0); Neutrophils Absolute Auto 11.3 10^3/uL (1.4-6.5); Neutrophils Percent Auto 82.2 % (43.0-75.0); Platelet Count 215 10^3/uL (150-450); Red Blood Count 5.43 10^6/uL (4.70-6.10); Red Cell Distribution Width 12.3 % (11.0-15.0); White Blood Count 13.8 10^3/uL (4.0-11.0)
[2024-12-08] MEDS: KETOROLAC TROMETHAMINE 30 MG/ML VIAL IVP (15:11)
[2024-12-08] MEDS: 0.9 % SODIUM CHLORIDE 1,000 ML 999 ML IV (15:11)
[2024-12-08] MEDS: PIPERACILLIN SODIUM/TAZOBACTAM 4.5 GM in 0.9 % SODIUM CHLORIDE 50 ML IV (15:11)
[2024-12-08 15:28] LABS: Erythrocyte Sedimentation Rate 22 mm/hr (<=15)
[2024-12-08 15:35] LABS: Alanine Aminotransferase 16 U/L (16-63); Albumin Globulin Ratio 1.1; Albumin Level 4.6 g/dL (3.4-5.0); Alkaline Phosphatase 86 U/L (46-116); Anion Gap 15.5; Aspartate Amino Transferase 13 U/L (15-37); Bilirubin Total 1.1 mg/dL (0.2-1.0); C Reactive Protein 6.23 mg/dL (<=0.50); Calcium 9.7 mg/dL (8.5-10.1); Carbon Dioxide 27.2 mmol/L (21.0-32.0); Chloride 99 mmol/L (98-107); Estimated GFR (African America >60 (>=60 mL/min/1.73m^2); Estimated GFR (Non-African Ame >60 (>=60 mL/min/1.73m^2); Globulin 4.2 g/dL; Glucose 99 mg/dL (74-106); Potassium 3.7 mmol/L (3.5-5.1); Sodium 138 mmol/L (136-145); Total Protein 8.8 g/dL (6.4-8.2)
[2024-12-08 17:05] VITALS: BP 124/78; PULSE 86; TEMP 37.1; O2SAT 100
[2024-12-08 18:42] VITALS: O2SAT 98
== END 2024-12-08 18:45 | disposition home or self-care (01) ==
PROVIDERS: Physician Assistant; Emergency Provider Emergency Medicine
DX: K04.7 Periapical abscess without sinus (principal); L03.211 Cellulitis of face
CPT/HCPCS: 36415; 70491; 80053; 82800; 83605; 85025; 85652; 86140; 87040; 96365; 96375; 99285; J1885; J2543; Q9967